=== PATIENT | male | born 1965 | race African-American/Black ===

== ENCOUNTER 2020-05-21 16:14 | Observation (INO) ==
[2020-05-21] MEDS ORDERED: SODIUM CHLORIDE 0.9% 1,000 ML IV STA (16:48)
[2020-05-21 17:10] LABS: Basophils % 0.3 % (0.0-0.8); Eosinophils # 0.1 10*3/uL (0.0-0.87); Eosinophils % 0.9 % (0.00-10.9); Hematocrit 39.8 VOL% (42.0-52.0); Hemoglobin 13.1 GM/DL (14.0-18.0); Immature Granulocytes % 0.2 %; Immature Granulocytes Absolute 0.02 #; Lymphocytes # 3.1 10*3/uL (1.4-4.0); Mean Corpuscular HGB Conc 32.9 GM/DL (32-36); Mean Corpuscular Volume 86.7 FL (87-102); Mean Platelet Volume 9.8 FL (9.6-12.0); Monocytes % 6.7 % (1.7-12.7); Neutrophils % 57.9 % (38.7-73.9); Platelet Count 279 T/CUMM (130-400); Red Blood Count 4.59 MC/CUMM (3.8-5.5); Red Cell Distribution Width 12.7 % (9.3-17.3); White Blood Count 9.2 T/CUMM (4-12)
[2020-05-21 17:31] LABS: Calcium 9.2 MG/DL (8.5-10.1); Osmolality,Calculated 277.5 MOS/KG (273-304); Potassium 3.5 MMOL/L (3.5-5.1)
[2020-05-21 17:51] LABS: Bilirubin,Urine Negative (Negative); Blood, Urine Large mg/dL (Negative); Glucose,Urine (UA) Negative (Negative); Ketones,Urine Negative (Negative); Mucus,Urine Occasional /LPF (Occasional); Nitrite,Urine Negative (Negative); Protein,Urine Negative; RBC,Urine 1463 /HPF (0-4); Squamous Epithelial Cell,Urine Occasional /HPF (0-10); Urine Appearance CLEAR (Clear); Urine Color Yellow (Yellow); Urine Specific Gravity 1.013 (1.001-1.035); Urine Urobilinogen < 2.0 EU/DL (0.2-1.0)
[2020-05-21] MEDS ORDERED: DEXTROSE 50% 25 GM/50 ML VIAL IV PRN (19:10)
[2020-05-21] MEDS ORDERED: GLUCAGON 1 MG VIAL IM PRN (19:10)
[2020-05-21] MEDS ORDERED: MORPHINE 4 MG/1 ML VIAL IV STA (20:40)
[2020-05-21] MEDS ORDERED: ONDANSETRON 4 MG/2 ML VIAL IV STA (20:43)
[2020-05-21] MEDS: HYDROmorphone 2 MG/1 ML VIAL IV PRN (22:20)
[2020-05-21] MEDS: ATORVASTATIN 80 MG TABLET PO SCH (22:21)
[2020-05-22 04:59] LABS: Basophils % 0.2 % (0.0-0.8); Eosinophils % 0.1 % (0.00-10.9); Hematocrit 38.6 VOL% (42.0-52.0); Hemoglobin 11.8 GM/DL (14.0-18.0); Immature Granulocytes % 0.6 %; Immature Granulocytes Absolute 0.06 #; Lymphocytes % 19.9 % (21.2-54.2); Mean Corpuscular HGB Conc 30.6 GM/DL (32-36); Mean Corpuscular Volume 91.3 FL (87-102); Mean Platelet Volume 9.9 FL (9.6-12.0); Monocytes % 6.5 % (1.7-12.7); Neutrophils % 72.7 % (38.7-73.9); Platelet Count 255 T/CUMM (130-400); Red Blood Count 4.23 MC/CUMM (3.8-5.5); Red Cell Distribution Width 12.8 % (9.3-17.3); White Blood Count 10.2 T/CUMM (4-12)
[2020-05-22 05:17] LABS: Calcium 8.6 MG/DL (8.5-10.1); Osmolality,Calculated 278.5 MOS/KG (273-304); Potassium 5.1 MMOL/L (3.5-5.1)
[2020-05-22] MEDS: METOPROLOL SUCCINATE XL 100 MG TABLET PO SCH (10:45)
[2020-05-22] MEDS ORDERED: cefTRIAXone 1,000 MG in SYRINGE 1 EACH IV ONE (13:00)
[2020-05-22] MEDS ORDERED: fentaNYL 100 MCG/2 ML VIAL ONE (15:12)
[2020-05-22] MEDS ORDERED: MIDAZOLAM 2 MG/2 ML VIAL ONE (15:13)
[2020-05-22] MEDS ORDERED: PHENYLEPHRINE 1 MG/10 ML SYRINGE IV ONE (15:57)
[2020-05-22] MEDS ORDERED: propofoL 200 MG/20 ML VIAL IV ONE (15:57)
[2020-05-22] MEDS ORDERED: SEVOFLURANE 1 UNIT/15 MINUTE INH ONE (15:57)
[2020-05-22] MEDS ORDERED: LIDOCAINE 2% 5 ML VIAL ONE (15:57)
[2020-05-22] MEDS ORDERED: ONDANSETRON 4 MG/2 ML VIAL ONE (15:57)
[2020-05-22] MEDS: SODIUM CHLORIDE 0.9% 1,000 ML IV SCH (16:28)
[2020-05-22] MEDS: HYDROmorphone 2 MG/1 ML VIAL IV PRN ×2 (17:44→21:27)
[2020-05-22] MEDS: ATORVASTATIN 80 MG TABLET PO SCH (21:27)
[2020-05-23] MEDS: SODIUM CHLORIDE 0.9% 1,000 ML IV SCH ×3 (07:00→07:24)
[2020-05-23 07:49] LABS: Calcium 8.4 MG/DL (8.5-10.1); Osmolality,Calculated 279.4 MOS/KG (273-304); Potassium 4.1 MMOL/L (3.5-5.1)
[2020-05-23] MEDS ORDERED: oxyCODONE/ACETAMINOPHEN 5-325 MG TABLET PO PRN (08:28)
[2020-05-23] MEDS: METOPROLOL SUCCINATE XL 100 MG TABLET PO SCH (08:48)
[2020-05-23] MEDS ORDERED: DOCUSATE SODIUM 100 MG CAPSULE PO SCH (09:00)
[2020-05-23 18:59] VITALS: BP 120/58
== END 2020-05-23 12:20 | disposition home or self-care (01) ==
LOC: N.4E 16:14 → N.ED 16:14 → N.4E 21:11
PROVIDERS: ADMIT Internal Medicine; ATTEND Internal Medicine